=== PATIENT | male | born 1990 | race Hispanic/Latino ===

== ENCOUNTER 2021-05-06 17:54 | Emergency (ER) | payer BC ==
[~2021-05-06] VITALS: Ht 165.1 cm; Wt 77.1 kg
[2021-05-06 20:01] VITALS: BP 134/84
[2021-05-06 20:06] LABS: APPEARANCE,URINE Clear (CLEAR); BILIRUBIN,URINE Negative (NEGATIVE); COLOR,URINE Yellow (YELLOW); GLUCOSE, URINE (UA) Negative (NEGATIVE); KETONES,URINE Negative (NEGATIVE); LEUKOCYTE ESTERASE ,URINE Negative (NEGATIVE); NITRATE,URINE Negative (NEGATIVE); OCCULT BLOOD,URINE Negative (NEGATIVE); PROTEIN,URINE Negative (NEGATIVE)
[2021-05-06] MEDS ORDERED: PANT40TA PO (20:22)
== END 2021-05-06 20:55 | disposition home or self-care (01) ==
LOC: EDH 17:54
DX: R10.9 Unspecified abdominal pain (principal); Z79.899 Other long term (current) drug therapy
CPT/HCPCS: 71046; 81003